=== PATIENT | male | born 1955 | race Caucasian/White ===

== ENCOUNTER 2017-02-10 16:06 | Emergency (ER) | payer BC ==
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
== END 2017-02-10 19:33 | disposition home or self-care (01) ==
LOC: ER 16:06
DX: S06.0X0A Concussion without loss of consciousness, initial encounter (principal); R42 Dizziness and giddiness; R51 Headache; H53.149 Visual discomfort, unspecified; W22.8XXA Striking against or struck by other objects, initial encounter
CPT/HCPCS: 70450; 72125; 99283; 99284